=== PATIENT | female | born 1965 | race Caucasian/White ===

== ENCOUNTER 2024-07-25 11:25 | Day surgery (SDC) | payer OTHER ==
[~2024-07-25] VITALS: Ht 162.6 cm; Wt 66.7 kg
[~2024-07-25 11:25] MED LIST: BIEST/PROG/TEST; CHOL10002; Lactated Ringer's 1,000 ML IV ONE; Multiple Vitam1 EAC1 PO; PROG100 PO; PSYL5.85P PO; propofoL 50 ML IV ONE
[2024-07-25] MEDS ORDERED: XIIDRA1 EACH (11:52)
[2024-07-25] MEDS ORDERED: TRAZ50 (11:52)
[2024-07-25] MEDS ORDERED: Lactated Ringer's 1,000 ML IV ONE (12:29)
[2024-07-25 14:48] VITALS: BP 146/83
== END 2024-07-25 13:45 | disposition home or self-care (01) ==
LOC: ORSCSDS 11:25
PROVIDERS: Surgery
PROC: 0DJD8ZZ Inspection of Lower Intestinal Tract, Via Natural or Artificial Opening Endoscopic (ICD-10-PCS; principal; 2024-07-25 13:00)
DX: R19.4 Change in bowel habit (principal); R10.84 Generalized abdominal pain; Z90.49 Acquired absence of other specified parts of digestive tract; Z79.899 Other long term (current) drug therapy
CPT/HCPCS: J2704; J7120